=== PATIENT | female | born 1935 | race Caucasian/White ===

== ENCOUNTER 2020-09-29 12:13 | Inpatient (IN) ==
[2020-09-30 05:45] LABS: Basophils % 0.7 %; Eosinophils # 0.5 K/mcL (0.0-0.6); Eosinophils % 8.4 %; Hematocrit 29.8 % (35.3-44.9); Hemoglobin 9.3 g/dL (11.5-15.4); Immature Granulocytes % 1.9 % (0-4); Lymphocytes # 0.9 K/mcL (0.6-4.6); Lymphocytes % 14.5 %; Mean Corpuscular HGB Conc 31.2 g/dL (31.6-35.5); Mean Corpuscular Hemoglobin 30.5 pg (28.0-33.3); Mean Corpuscular Volume 97.7 fL (83.0-100.0); Mean Platelet Volume 10.7 fL (9.4-12.4); Monocytes # 0.7 K/mcL (0.0-1.3); Monocytes % 11.1 %; Neutrophils # 3.8 K/mcL (1.6-8.9); Nucleated Red Blood Cells 0.3 /100 WBC (0); Platelet Count 148 K/mcL (140-400); Red Blood Count 3.05 M/mcL (3.82-4.97); Red Cell Distribution Width 16.9 % (11.5-14.5); Segmented Neutrophils % 63.4 %; White Blood Count 5.9 K/mcL (4.3-11.1)
[2020-09-30 05:59] LABS: Calcium 8.6 mg/dL (8.6-10.3); Magnesium 1.8 mg/dL (1.6-2.6); Potassium 5.1 mEq/L (3.5-5.1)
[2020-09-30] MEDS: Aspirin Enteric Coated 81 MG Tablet PO SCH (08:33)
[2020-09-30] MEDS: lisinopriL 20 MG TABLET PO SCH (08:34)
[2020-09-30] MEDS: *HR* SitaGLIPtin 25 MG TABLET PO SCH (08:34)
[2020-09-30] MEDS: *HR* HYDROcodone/Acet 5/325 mg TABLET PO PRN ×2 (11:22→21:57)
[2020-09-30] MEDS ORDERED: D5% in Water 1,000 ML IVC PRN (12:32)
[2020-09-30] MEDS ORDERED: *HR* Dextrose 50 % in Water (Vial) 50 ML VIAL IVP PRN (12:32)
[2020-09-30] MEDS ORDERED: Dextrose Gel 15 GM/37.5 ML TUBE PO PRN ×2 (12:32)
[2020-09-30] MEDS: Insulin LISPRO 300 UNITS/3 ML VIAL SUBQ SCH ×3 (13:37→21:57)
[2020-10-01] MEDS: *HR* HYDROcodone/Acet 5/325 mg TABLET PO PRN ×3 (04:13→21:51)
[2020-10-01 05:48] LABS: Basophils % 0.4 %; Eosinophils # 0.3 K/mcL (0.0-0.6); Eosinophils % 5.5 %; Hematocrit 29.1 % (35.3-44.9); Immature Granulocytes % 1.1 % (0-4); Lymphocytes # 0.7 K/mcL (0.6-4.6); Lymphocytes % 12.4 %; Mean Corpuscular HGB Conc 30.9 g/dL (31.6-35.5); Mean Corpuscular Hemoglobin 29.9 pg (28.0-33.3); Mean Corpuscular Volume 96.7 fL (83.0-100.0); Mean Platelet Volume 10.4 fL (9.4-12.4); Monocytes # 0.6 K/mcL (0.0-1.3); Monocytes % 11.2 %; Neutrophils # 3.9 K/mcL (1.6-8.9); Platelet Count 139 K/mcL (140-400); Red Blood Count 3.01 M/mcL (3.82-4.97); Red Cell Distribution Width 16.2 % (11.5-14.5); Segmented Neutrophils % 69.4 %; White Blood Count 5.7 K/mcL (4.3-11.1)
[2020-10-01] MEDS: Aspirin Enteric Coated 81 MG Tablet PO SCH (08:51)
[2020-10-01] MEDS: *HR* SitaGLIPtin 25 MG TABLET PO SCH (08:51)
[2020-10-01] MEDS: Insulin LISPRO 300 UNITS/3 ML VIAL SUBQ SCH ×4 (08:52→21:52)
[2020-10-01] MEDS: lisinopriL 20 MG TABLET PO SCH (09:27)
[2020-10-01] MEDS: polyethylene glycoL 3350 17 GM POWD.PACK PO SCH ×2 (12:09→21:51)
[2020-10-01] MEDS: Sennosides 8.6 MG TABLET PO SCH ×2 (12:09→21:51)
[2020-10-02] MEDS: *HR* HYDROcodone/Acet 5/325 mg TABLET PO PRN ×2 (05:11→18:06)
[2020-10-02] MEDS: lisinopriL 20 MG TABLET PO SCH (07:40)
[2020-10-02] MEDS: Insulin LISPRO 300 UNITS/3 ML VIAL SUBQ SCH ×4 (07:58→20:09)
[2020-10-02] MEDS: *HR* SitaGLIPtin 25 MG TABLET PO SCH (08:00)
[2020-10-02] MEDS: Aspirin Enteric Coated 81 MG Tablet PO SCH (08:00)
[2020-10-02] MEDS: polyethylene glycoL 3350 17 GM POWD.PACK PO SCH ×2 (08:00→20:14)
[2020-10-02] MEDS: Sennosides 8.6 MG TABLET PO SCH ×2 (08:00→20:14)
[2020-10-02] MEDS ORDERED: Bisacodyl 10 MG RECTAL SUPPOSITORY RC PRN (14:12)
[2020-10-02] MEDS ORDERED: Lactulose Oral Soln 20 GM/30 ML UDC PO PRN (14:12)
[2020-10-03] MEDS: *HR* Enoxaparin 30 MG/0.3 ML SYRINGE SQ SCH (04:26)
[2020-10-03 05:24] LABS: Basophils % 0.5 %; Eosinophils # 0.3 K/mcL (0.0-0.6); Eosinophils % 4.9 %; Hematocrit 29.9 % (35.3-44.9); Hemoglobin 9.2 g/dL (11.5-15.4); Immature Granulocytes % 1.9 % (0-4); Lymphocytes # 0.8 K/mcL (0.6-4.6); Lymphocytes % 12.7 %; Mean Corpuscular HGB Conc 30.8 g/dL (31.6-35.5); Mean Corpuscular Volume 97.4 fL (83.0-100.0); Monocytes # 0.8 K/mcL (0.0-1.3); Neutrophils # 4.1 K/mcL (1.6-8.9); Nucleated Red Blood Cells 0.3 /100 WBC (0); Platelet Count 177 K/mcL (140-400); Red Blood Count 3.07 M/mcL (3.82-4.97); Red Cell Distribution Width 15.8 % (11.5-14.5); White Blood Count 6.2 K/mcL (4.3-11.1)
[2020-10-03 05:37] LABS: Calcium 9.5 mg/dL (8.6-10.3); Potassium 5.8 mEq/L (3.5-5.1)
[2020-10-03] MEDS: Sennosides 8.6 MG TABLET PO SCH ×2 (09:16→20:08)
[2020-10-03] MEDS: lisinopriL 20 MG TABLET PO SCH (09:16)
[2020-10-03] MEDS: *HR* SitaGLIPtin 25 MG TABLET PO SCH (09:16)
[2020-10-03] MEDS: *HR* HYDROcodone/Acet 5/325 mg TABLET PO PRN ×2 (09:17→20:08)
[2020-10-03] MEDS: Aspirin Enteric Coated 81 MG Tablet PO SCH (09:17)
[2020-10-03] MEDS: polyethylene glycoL 3350 17 GM POWD.PACK PO SCH ×2 (09:17→20:08)
[2020-10-03] MEDS: Insulin LISPRO 300 UNITS/3 ML VIAL SUBQ SCH ×4 (09:17→20:09)
[2020-10-04] MEDS: *HR* HYDROcodone/Acet 5/325 mg TABLET PO PRN ×3 (04:03→19:15)
[2020-10-04] MEDS: *HR* Enoxaparin 30 MG/0.3 ML SYRINGE SQ SCH (04:04)
[2020-10-04 04:57] LABS: Hematocrit 27.8 % (35.3-44.9); Hemoglobin 8.7 g/dL (11.5-15.4); Mean Corpuscular HGB Conc 31.3 g/dL (31.6-35.5); Mean Corpuscular Hemoglobin 30.1 pg (28.0-33.3); Mean Corpuscular Volume 96.2 fL (83.0-100.0); Mean Platelet Volume 11.6 fL (9.4-12.4); Platelet Count 202 K/mcL (140-400); Red Blood Count 2.89 M/mcL (3.82-4.97); Red Cell Distribution Width 15.5 % (11.5-14.5); White Blood Count 5.8 K/mcL (4.3-11.1)
[2020-10-04 05:16] LABS: Calcium 9.6 mg/dL (8.6-10.3); Magnesium 1.7 mg/dL (1.6-2.6); Potassium 5.6 mEq/L (3.5-5.1)
[2020-10-04] MEDS: Sennosides 8.6 MG TABLET PO SCH ×2 (08:47→21:51)
[2020-10-04] MEDS: lisinopriL 20 MG TABLET PO SCH (08:47)
[2020-10-04] MEDS: *HR* SitaGLIPtin 25 MG TABLET PO SCH (08:47)
[2020-10-04] MEDS: Aspirin Enteric Coated 81 MG Tablet PO SCH (08:47)
[2020-10-04] MEDS: polyethylene glycoL 3350 17 GM POWD.PACK PO SCH ×2 (08:47→21:52)
[2020-10-04] MEDS: Insulin LISPRO 300 UNITS/3 ML VIAL SUBQ SCH ×4 (08:48→21:51)
[2020-10-05] MEDS: *HR* Enoxaparin 30 MG/0.3 ML SYRINGE SQ SCH (05:10)
[2020-10-05] MEDS: *HR* HYDROcodone/Acet 5/325 mg TABLET PO PRN ×2 (05:10→13:26)
[2020-10-05] MEDS: lisinopriL 20 MG TABLET PO SCH (08:56)
[2020-10-05] MEDS: *HR* SitaGLIPtin 25 MG TABLET PO SCH (08:57)
[2020-10-05] MEDS: Aspirin Enteric Coated 81 MG Tablet PO SCH (08:57)
[2020-10-05] MEDS: Sennosides 8.6 MG TABLET PO SCH ×2 (08:57→22:20)
[2020-10-05] MEDS: polyethylene glycoL 3350 17 GM POWD.PACK PO SCH ×2 (08:58→22:20)
[2020-10-05] MEDS: Insulin LISPRO 300 UNITS/3 ML VIAL SUBQ SCH ×4 (08:58→22:14)
[2020-10-05 09:51] LABS: Calcium 9.5 mg/dL (8.6-10.3)
[2020-10-06] MEDS: *HR* HYDROcodone/Acet 5/325 mg TABLET PO PRN ×2 (02:45→08:54)
[2020-10-06] MEDS: *HR* Enoxaparin 30 MG/0.3 ML SYRINGE SQ SCH (04:43)
[2020-10-06 05:02] LABS: Hematocrit 25.1 % (35.3-44.9); Mean Corpuscular HGB Conc 31.9 g/dL (31.6-35.5); Mean Corpuscular Hemoglobin 30.7 pg (28.0-33.3); Mean Corpuscular Volume 96.2 fL (83.0-100.0); Mean Platelet Volume 11.1 fL (9.4-12.4); Platelet Count 233 K/mcL (140-400); Red Blood Count 2.61 M/mcL (3.82-4.97); Red Cell Distribution Width 15.7 % (11.5-14.5)
[2020-10-06 05:21] LABS: Albumin 2.7 g/dL (3.5-5.7); Albumin/Globulin Ratio 0.8 (1.1-2.2); Bilirubin,Total 0.3 mg/dL (0.3-1.0); Calcium 9.2 mg/dL (8.6-10.3); Globulin 3.4 g/dL (2.4-3.5); Magnesium 1.7 mg/dL (1.6-2.6); Potassium 5.1 mEq/L (3.5-5.1); Total Protein 6.1 g/dL (6.4-8.9)
[2020-10-06] MEDS: Insulin LISPRO 300 UNITS/3 ML VIAL SUBQ SCH ×4 (08:45→20:16)
[2020-10-06] MEDS: Aspirin Enteric Coated 81 MG Tablet PO SCH (08:53)
[2020-10-06] MEDS: *HR* SitaGLIPtin 25 MG TABLET PO SCH (08:53)
[2020-10-06] MEDS: Sennosides 8.6 MG TABLET PO SCH ×2 (08:54→20:15)
[2020-10-06] MEDS: polyethylene glycoL 3350 17 GM POWD.PACK PO SCH ×2 (08:54→20:15)
[2020-10-06] MEDS: lisinopriL 20 MG TABLET PO SCH (08:54)
[2020-10-06] MEDS ORDERED: *HR* OxyCODONE/APAP 5/325 TABLET PO PRN (13:52)
[2020-10-06] MEDS: *HR* OxyCODONE/APAP 5/325 TABLET PO PRN (20:15)
[2020-10-07] MEDS: *HR* OxyCODONE/APAP 5/325 TABLET PO PRN (04:50)
[2020-10-07] MEDS ORDERED: *HR* Enoxaparin 40 MG/0.4 ML SYRINGE SQ SCH (06:00)
[2020-10-07 07:01] VITALS: BP 98/50
[2020-10-07] MEDS: Insulin LISPRO 300 UNITS/3 ML VIAL SUBQ SCH (09:22)
[2020-10-07] MEDS: Sennosides 8.6 MG TABLET PO SCH (09:23)
[2020-10-07] MEDS: *HR* SitaGLIPtin 25 MG TABLET PO SCH (09:23)
[2020-10-07] MEDS: polyethylene glycoL 3350 17 GM POWD.PACK PO SCH (09:23)
[2020-10-07] MEDS: Aspirin Enteric Coated 81 MG Tablet PO SCH (09:23)
[2020-10-07] MEDS: lisinopriL 20 MG TABLET PO SCH (10:30)
[2020-10-08] MEDS ORDERED: lisinopriL 10 MG TABLET PO SCH (09:00)
== END 2020-10-07 11:30 | DRG 560 ==
LOC: INPGRE 09-30 04:02
PROVIDERS: ADMIT Family Medicine; ATTEND Family Medicine